=== PATIENT | male | born 1945 | race Caucasian/White ===

== ENCOUNTER → 2016-09-26 | Outpatient (CLI) | payer OTHER ==
[~2016-09-26] MED LIST: IOPAMIDOL (ISOVUE 370) 100 ML BTL IV ONE; IOPAMIDOL (ISOVUE-300) 50 ML VIAL IV ONE
[2016-09-26 15:19] LABS: CREATININE 0.8 mg/dL (0.7-1.3); GLOMERULAR FILTRATION RATE > 60
--- NOTE | 2016-09-26 18:48 | CT ---
CT Abdomen and Pelvis (Without and With Contrast) CT Urogram 1613 hours History gross hematuria. Previous prostatectomy and radiation treatment for prostate cancer 3 years a go.. Technique: Spiral images were obtained through the abdomen and pelvis without contrast for renal ston e evaluation. 90 mL of Isovue-300 IV contrast were administered and spiral images were obtained throu gh the abdomen. After a 9-minute delay, spiral imaging was obtained through the abdomen and pelvis. I mages were reconstructed in multiple planes for CT urogram imaging. An AP scanogram leather products supervisor image was a lso obtained over the abdomen and pelvis after axial imaging was acquired. Dose reduction techniques were utilized. Findings: On the noncontrast images, there is a small 2 mm calcification mid to lower left kidney pos teriorly. There is increased density within the collecting system adjacent to this small calculus ove r an area of about 8 mm probably representing blood products or clot. No additional urinary tract carson culi are seen. With IV contrast administration, there is good uptake and excretion of contrast by the kidneys. In th e region of the presumed thrombus within the mid to lower pole collecting system posteriorly there is associated filling defect that does not fill with contrast on delayed imaging. This also does not en zackery on venous phase imaging. No additional possible filling defects are seen within the collecting system on either side with normal contour to the renal collecting structures, as well as the ureters. There is a 14 x 10 mm peripelvic cyst upper pole left kidney. A tiny 5 mm cortical cyst is seen midp ortion right kidney anterolaterally. The bladder has a normal contour. No bladder lesion is seen. The bladder is well-distended. Liver: Normal. Spleen: Normal. Gallbladder and Bile Ducts: Normal. Pancreas: Normal. Adrenals: Normal. Abdominal Aorta: There is moderate atherosclerotic calcification of the abdominal aorta without aneur ysm. Pelvic structures: The patient has had previous prostatectomy. No pelvic masses or lymphadenopathy is appreciated Appendix: Normal. Bowel Loops: Normal. No bowel obstruction, ascites, or significant retroperitoneal lymphadenopathy. Skeletal system: Vertebral body heights are well-maintained. There no subluxations. There are no lyt ic or sclerotic osseous lesions. Impression: 1. Focal 8mm increased density that could represent blood clot within the mid to lower left kidney po steriorly with dependent calcification. This did not enhance with contrast and did not opacify on del ayed imaging with the remaining renal pelvis filling with contrast. A focal urothelial mass is felt b e possible but less likely. If symptoms persist, consider correlation with ureteroscopy. 2. Incidental benign-appearing peripelvic cyst upper pole left kidney and cortical cyst lower pole ri ght kidney.
== END ==
LOC: FIMAGING 14:20
PROVIDERS: ATTEND Physician Assistant Medical
DX: R31.0 Gross hematuria (principal); Z85.46 Personal history of malignant neoplasm of prostate; R93.49 Abnormal radiologic findings on diagnostic imaging of other urinary organs; N28.1 Cyst of kidney, acquired
CPT/HCPCS: 74178; Q9967

== ENCOUNTER 2018-11-26 12:28 | Emergency (ER) | payer OTHER ==
[2018-11-26] MEDS ORDERED: NS 500 ML IV ONE (12:46)
[2018-11-26 13:01] LABS: PLATELET COUNT 201 10^3/uL (150-400)
--- NOTE | 2018-11-26 13:53 | EDPHY ---
H & P Time Seen by Provider: 11/26/18 12:41 HPI/ROS: HPI Lightheaded, near fainting. 73-year-old male by ambulance. He works as a clinical investigator. He was standing next to his truck. He was smoking a cigarette. His contractor friend was with him. He reports that he started feeling lightheaded. He sat down in his truck. [place] more lightheaded and flushed. He states that this lasted 30 sec to a minute and then resolved. His friend states that he may have lost consciousness but is not sure. The patient tells me that he had a similar event to this about 10 years ago after a took some Percocet. During this event , he denies any associated headache, chest pain, shortness of breath, palpitations. No loss of sensation or weakness in his extremities. He tells me that he feels fine at this time. He denies any contact with electricity or being shocked. Blood sugar per EMS was in the 170s. ROS: Constitutional: No fever, no chills. As above. Eyes: No discharge. No changes in vision. ENT: No sore throat. No nasal congestion or rhinorrhea. Respiratory: No cough. No shortness of breath. Cardiac: No chest pain, no palpitations. Gastrointestinal: No abdominal pain, no vomiting, no diarrhea. Genitourinary: No hematuria. No dysuria or increased frequency with urination. Musculoskeletal: No back pain. No neck pain. No myalgias or arthralgias. Skin: No rashes. Neurological: No headache. No focal weakness or altered sensation. Past medical history: No past medical history. He is not on any prescription medications. Social history: He is a smoker. No alcohol. He is currently here with his . Physical Exam: General Appearance: Alert, no distress. This patient is responding to questions appropriately and in full sentences. This patient appears well- hydrated and well-nourished. Eyes: Pupils equal and round no pallor or injection. No lid edema, erythema or injection. No photophobia. No nystagmus. ENT, Mouth: Mucous membranes are moist. The pharyngeal tissues are unremarkable. No edema or swelling. No asymmetry suggestive of abscess. No erythema or exudates. No tongue lacerations or abrasions. Respiratory: There are no retractions, lungs are clear to auscultation with good air movement bilaterally. Cardiovascular: Regular rate and rhythm. No murmur. Gastrointestinal: Abdomen is soft and nontender, no masses, bowel sounds normal. No focal tenderness at McBurney's point. No Sampson sign. Neurological: Motor sensory function is grossly intact. Cranial nerves are normal. Cerebellar function is normal. Gait is normal. Gait is normal. Skin: Warm and dry, no rashes. Musculoskeletal: Neck is supple and nontender. Extremities are symmetrical. All joints range without pain or impingement. Psychiatric: No agitation. No depression. Database: EKG: EKG time is 12:35 p.m.; EKG shows a narrow complex normal sinus rhythm with a ventricular rate of 53. The NV, QRS, QT intervals are within normal limits. There are no ST-T wave changes indicative of ischemic or injury pattern. No evidence of right heart strain. No evidence of WPW, hypertrophic cardiomyopathy , Brugada syndrome. Interpreted by me. Imaging: Procedures: Emergency department course: Triage vital signs reviewed and are normal. IV was placed. He was placed on a quality assurance monitor final. He was started on IV normal saline with 500 cc to be given over the next hour. EKG obtained and reviewed by myself. Blood sugar per EMS was in the 170s. 2:25 p.m., the patient was re-evaluated, his vital signs have remained stable throughout his emergency department course. He has had no complaints. He has been asymptomatic. Results of his diagnostic workup were discussed with him and his who is present at the bedside. I discussed admission for observation. He does not want to do this. In my professional opinion he understands the risks of declining admission. The patient competently engages in shared decision making. They demonstrate capacitance to make decisions. He will follow up with his primary care physician in 1-2 days for re-evaluation. He states he can easily return to the emergency department if needed. Return to emergency department precautions were thoroughly reviewed with him and his . The importance of follow-up was discussed. All of their questions were answered. The patient was discharged from the emergency department in good condition with his who is driving. Differential Diagnosis: The differential diagnosis on this patient includes but is not limited to vasovagal syncope, hypoglycemia, noncardiac syncope. Arrhythmia, WPW, Brugada syndrome, acute coronary syndrome, CVA, pulmonary embolism, subarachnoid hemorrhage unlikely. This represents a partial list of diagnoses considered. These considerations are based on history, physical exam, past history, reassessment and diagnostic testing. Smoking Status: Current every day smoker Constitutional: Initial Vital Signs Temperature (C) 36.5 C 11/26/18 13:01 Heart Rate 61 11/26/18 13:01 Respiratory Rate 16 11/26/18 13:01 Blood Pressure 118/76 11/26/18 13:01 O2 Sat (%) 95 11/26/18 13:01 O2 Delivery Mode Room Air Allergies/Adverse Reactions: acetaminophen [From Percocet] Allergy (Severe, Verified 11/26/18 13:03) SYNCOPE oxycodone HCl [From Percocet] Allergy (Severe, Verified 11/26/18 13:03) SYNCOPE Home Medications: Medication Instructions Recorded Aspirin [Aspirin 325 mg (OTC)] 325 mg PO DAILY PRN 02/18/13 Pharmacy Complete 02/18/13 02/18/13 Medical Decision Making - Data Points Laboratory Results: Laboratory Results 11/26/18 12:50 11/26/18 12:50 11/26/18 11/26/18 11/26/18 12:50 12:50 12:44 WBC 5.70 10^3/uL 10^3/uL (3.80-9.50) RBC 4.94 10^6/uL 10^6/uL (4.40-6.38) Hgb 16.4 g/dL g/dL (13.7-17.5) Hct 48.6 % % (40.0-51.0) MCV 98.4 fL fL (81.5-99.8) MCH 33.2 pg pg (27.9-34.1) MCHC 33.7 g/dL g/dL (32.4-36.7) RDW 13.2 % % (11.5-15.2) Plt Count 201 10^3/uL 10^3/uL (150-400) MPV 9.4 fL fL (8.7-11.7) Neut % (Auto) 66.1 % % (39.3-74.2) Lymph % (Auto) 23.7 % % (15.0-45.0) Bledsoe % (Auto) 7.9 % % (4.5-13.0) Eos % (Auto) 1.4 % % (0.6-7.6) Baso % (Auto) 0.4 % % (0.3-1.7) Nucleat RBC Rel Count 0.0 % % (0.0-0.2) Absolute Neuts (auto) 3.77 10^3/uL 10^3/uL (1.70-6.50) Absolute Lymphs (auto) 1.35 10^3/uL 10^3/uL (1.00-3.00) Absolute Monos (auto) 0.45 10^3/uL 10^3/uL (0.30-0.80) Absolute Eos (auto) 0.08 10^3/uL 10^3/uL (0.03-0.40) Absolute Basos (auto) 0.02 10^3/uL 10^3/uL (0.02-0.10) Absolute Nucleated RBC 0.00 10^3/uL 10^3/uL (0-0.01) Immature Gran % 0.5 % % (0.0-1.1) Immature Gran # 0.03 10^3/uL 10^3/uL (0.00-0.10) Sodium 135 mEq/L mEq/L (135-145) Potassium 4.4 mEq/L mEq/L (3.5-5.2) Chloride 104 mEq/L mEq/L (97-110) Carbon Dioxide 22 mEq/l mEq/l (22-31) Anion Gap 9 mEq/L mEq/L (6-14) BUN 11 mg/dL mg/dL (7-23) Creatinine 0.9 mg/dL mg/dL (0.7-1.3) Estimated GFR > 60 Glucose 151 mg/dL H mg/dL (70-100) Calcium 9.2 mg/dL mg/dL (8.5-10.4) POC Troponin I 0.01 ng/mL ng/mL (0.00-0.08) Medications Given: Discontinued Medications Sodium Chloride (Ns) 500 mls @ 1,000 mls/hr IV EDNOW ONE PRN Reason: Protocol Stop: 11/26/18 13:15 Last Admin: 11/26/18 13:01 Dose: 500 mls Point of Care Test Results: Chemistry 11/26/18 12:44 POC Troponin I 0.01 ng/mL ng/mL (0.00-0.08) Departure - Departure Disposition: Home, Routine, Self-Care Clinical Impression: Near syncope Condition: Good Instructions: Near Syncope (ED) Additional Instructions: Read and follow provided instructions. Follow-up with your primary care physician in 1-2 days for re-evaluation. Keep yourself well hydrated. No strenuous activity. Return to the emergency department for lightheadedness, fainting, chest pain, shortness of breath, heart palpitations or other serious concerns. Referrals: Saurav Michel MD [Primary Care Provider] - As per Instructions
[2018-11-26 14:38] VITALS: BP 126/78
--- NOTE | 2018-11-26 15:31 | CPEKG ---
Test Reason : OPEN Blood Pressure : / mmHG Vent. Rate : 053 BPM Atrial Rate : 052 BPM P-R Int : 182 ms QRS Dur : 086 ms QT Int : 436 ms P-R-T Axes : 069 021 044 degrees QTc Int : 410 ms Sinus rhythm Confirmed by Piotr Hackett ([id number] on 11/26/2018 3:30:43 PM Referred By: PHYSICIAN ED Confirmed By:Piotr Hackett
== END 2018-11-26 14:38 | disposition home or self-care (01) ==
LOC: EDUNIT#
DX: R55 Syncope and collapse (principal); R42 Dizziness and giddiness
CPT/HCPCS: 84484-ER